=== PATIENT | female | born 1985 | race Two or more races ===

== ENCOUNTER 2021-01-11 12:36 | Emergency (ER) | payer OTHER ==
[~2021-01-11] VITALS: Ht 157.5 cm; Wt 68.0 kg
[~2021-01-11 12:36] MED LIST: CARDIZEM30 MG
[2021-01-11] MEDS ORDERED: ZITHROMAX500 MG PO (15:49)
[2021-01-11] MEDS ORDERED: NORFLEX100MG PO (15:50)
== END 2021-01-11 16:08 | disposition home or self-care (01) ==
LOC: ER 12:36
DX: M54.2 Cervicalgia (principal); R51.9 Headache, unspecified; Z20.822 Contact with and (suspected) exposure to COVID-19

== ENCOUNTER 2021-10-14 16:42 | Emergency (ER) | payer OTHER ==
[~2021-10-14] VITALS: Ht 157.5 cm; Wt 70.3 kg
[~2021-10-14 16:42] MED LIST changes: +NORFLEX100MG PO; +ZITHROMAX500 MG PO
[2021-10-14] MEDS ORDERED: METROPOLOL 50 MG. (18:01)
== END 2021-10-14 20:32 | disposition home or self-care (01) ==
LOC: ER 16:42
DX: B34.9 Viral infection, unspecified (principal); Z20.822 Contact with and (suspected) exposure to COVID-19; Z88.8 Allergy status to other drugs, medicaments and biological substances; I10 Essential (primary) hypertension

== ENCOUNTER 2022-06-17 08:06 | Emergency (ER) | payer OTHER ==
[~2022-06-17] VITALS: Ht 157.5 cm; Wt 69.9 kg
[~2022-06-17 08:06] MED LIST changes: +METROPOLOL 50 MG.
== END 2022-06-17 10:57 | disposition home or self-care (01) ==
LOC: ER 08:06
DX: N39.0 Urinary tract infection, site not specified (principal); I10 Essential (primary) hypertension; Z88.6 Allergy status to analgesic agent; Z88.0 Allergy status to penicillin

== ENCOUNTER → 2023-02-22 | Emergency (ER) | payer OTHER ==
[~2023-02-22] VITALS: Ht 152.4 cm; Wt 75.7 kg
== END | disposition left against medical advice (07) ==
LOC: ER 20:43
DX: Z53.21 Procedure and treatment not carried out due to patient leaving prior to being seen by health care provider (principal)